=== PATIENT | female | born 1970 | race Caucasian/White ===

== ENCOUNTER 2017-04-16 14:37 | Emergency (ER) | payer OTHER ==
[~2017-04-16 14:37] MED LIST: DEXL60CA2 PO; ESOM20CA PO; LACT1CAP8 PO; MAGN1TAB PO; PROM25TA10 PO; RANI150T2 PO; SUCR1TAB PO
[2017-04-16] MEDS ORDERED: IV NORMAL SALINE 1000ML BAG 1,000 ML IV SCH (14:41)
[2017-04-16] MEDS ORDERED: ONDANSETRON PF 4 MG/2 ML VIAL. IV ONE (14:45)
[2017-04-16 15:41] LABS: BASO % 0 % (0-3); EOS % 0 % (0-3); HEMATOCRIT 37.4 % (36.0-47.0); HEMOGLOBIN 11.8 g/dL (12.0-15.5); LYMPH # 1.2 x10^3/uL (1.0-4.8); LYMPH % 9 % (24-48); MEAN CORPUSCULAR HEMOGLOBIN 24 pg (25-35); MEAN CORPUSCULAR HGB CONC 32 g/dL (31-37); MEAN CORPUSCULAR VOLUME 77 fL (79-100); MONO % 6 % (0-9); NEUT % 84 % (31-73); PLATELET COUNT 381 x10^3/uL (140-400); RED BLOOD COUNT 4.88 x10^6/uL (3.50-5.40); RED CELL DISTRIBUTION WIDTH 15.7 % (11.5-14.5); WHITE BLOOD COUNT 12.9 x10^3/uL (4.0-11.0)
[2017-04-16 15:49] LABS: BILIRUBIN,URINE NEGATIVE (NEG); GLUCOSE,URINE NEGATIVE (NEG); NITRITE,URINE NEGATIVE (NEG); PH,URINE 7.5; PROTEIN,URINE NEGATIVE (NEG-TRACE); UROBILINOGEN,URINE 0.2 mg/dL (0.2 mg/dL)
[2017-04-16 15:54] LABS: CALCIUM 9.5 mg/dL (8.5-10.1); CREATININE 0.8 mg/dL (0.6-1.0); GFR 76.9; POTASSIUM 3.6 mmol/L (3.5-5.1)
[2017-04-16 15:54] LABS: BACTERIA,URINE FEW /HPF (0-FEW); RBC,URINE 0 /HPF (0-2); SQUAMOUS EPITHELIAL CELL,UR FEW /LPF; WBC,URINE OCC /HPF (0-4)
[2017-04-16 15:55] LABS: BARBITURATES NEG (NEG); BENZODIAZEPINES NEG (NEG); CANNABINOIDS NEG (NEG); COCAINE NEG (NEG); METHADONE NEG (NEG); OPIATES NEG (NEG); PHENCYCLIDINE NEG (NEG)
[2017-04-16 16:00] LABS: ALBUMIN 3.7 g/dL (3.4-5.0); ALBUMIN/GLOBULIN RATIO 0.9 (1.0-1.7); TOTAL BILIRUBIN 0.4 mg/dL (0.2-1.0); TOTAL PROTEIN 7.6 g/dL (6.4-8.2)
[2017-04-16] MEDS ORDERED: LIDO:MAALOX:DONNATAL 1:1:1 15 ML SINGLE DOSE SWSW ONE (17:00)
[2017-04-16] MEDS ORDERED: IV NORMAL SALINE 1000ML BAG 1,000 ML IV ONE (17:00)
[2017-04-16 18:05] VITALS: BP 165/73
[2017-04-16] MEDS ORDERED: DICY10CA53 PO (18:14)
[2017-04-16] MEDS ORDERED: ONDA4TAB7 PO (18:14)
--- NOTE | 2017-04-16 21:26 | ED.ADGEN ---
Past Medical History Past Medical History: Anxiety, Hypertension Past Surgical History: Cholecystectomy, Other Additional Past Surgical Histo: adnoids Alcohol Use: None Drug Use: None Adult General Chief Complaint Chief Complaint: NAUSEA/VOMITING/DIARRHA HPI HPI Patient is a 46 year old woman, history of hypertension, anxiety, who presents to the emergency department with a complaint of sudden onset of nausea, vomiting , and diarrhea that began this morning. Patient states she's also experiencing abdominal cramping throughout her entire abdomen. Patient states that she is having "hot flashes" throughout this morning as well, denies any chills or distinct fevers. Denies any similar symptoms previously. No sick contacts or exposures, Patient states she began taking Zoloft 2 days ago, and her blood pressure medication about a week ago. Patient denies any recent travel or surgery, any chest pain or shortness of breath, any urinary complaints. Denies any blood in stool or emesis. Patient states that she is anxious that her medication changes or causing her symptoms. She states she did review the insert for her Zoloft and is concerned that she may be experiencing serotonin syndrome. Patient is tachycardic in the 1 teens, blood pressure is 199/99, oxygen saturation is 98% on room air, respiratory rate is 24 and unlabored. No suicidal or homicidal ideations. She has not taken anything at home for symptoms prior to coming to the ED. Review of Systems Review of Systems Constitutional: Denies fever or chills. [] Eyes: Denies change in visual acuity. [] HENT: Denies nasal congestion or sore throat. [] Respiratory: Denies cough or shortness of breath. [] Cardiovascular: Denies chest pain or edema. [] GI: Denies abdominal pain, nausea, vomiting, bloody stools or diarrhea. [] : Denies dysuria. [] Musculoskeletal: Denies back pain or joint pain. [] Integument: Denies rash. [] Neurologic: Denies headache, focal weakness or sensory changes. [] Endocrine: Denies polyuria or polydipsia. [] Lymphatic: Denies swollen glands. [] Psychiatric: Denies depression or anxiety. [] Current Medications Current Medications Current Medications Medications (Trade) Dose Ordered Sig/Rico Start Time Stop Time Status Last Admin Dose Admin Multi-Ingredient Mouthwash/Gargle (Gi Cocktail Single Dose) 15 ml 1X ONCE 04/16/17 17:00 04/16/17 17:01 DC 04/16/17 16:43 15 ML Ondansetron HCl (Zofran) 4 mg 1X ONCE 04/16/17 14:45 04/16/17 14:46 DC 04/16/17 15:29 4 MG Sodium Chloride 1,000 ml @ 1,000 mls/hr 1X ONCE 04/16/17 17:00 04/16/17 17:59 DC 04/16/17 17:24 1,000 MLS/HR Allergies Allergies Allergies Coded Allergies Type Severity Reaction Last Updated Verified No Known Medication Allergies Allergy Unknown 05/21/16 Yes diclofenac Adverse Reaction Intermediate NAUSEA 05/21/16 Yes Physical Exam Physical Exam Constitutional: Well developed, well nourished, appears anxious, non-toxic appearance. [] HENT: Normocephalic, atraumatic, bilateral external ears normal, oropharynx moist, no oral exudates, nose normal. [] Eyes: PERRLA, EOMI, conjunctiva normal, no discharge. [] Neck: Normal range of motion, no tenderness, supple, no stridor. [] Cardiovascular:Heart rate regular rhythm, no murmur , S1, S2, rubs or gallops. [ ] Lungs & Thorax: Bilateral breath sounds clear to auscultation , no wheezing, rhonchi, rales. No chest or crepitus or tenderness. [] Abdomen: Bowel sounds normal, soft, mild initial patient throughout the epigastric and periumbilical region, no rebound, rigidity, no guarding, no masses, no pulsatile masses. [] Skin: Warm, dry, no erythema, no rash. [] Back: No tenderness, no CVA tenderness. [] Extremities: No tenderness, no cyanosis, no clubbing, ROM intact, no edema. Data Homans sign. [] Neurologic: Alert and oriented X 3, normal motor function, normal sensory function, no focal deficits noted. [] Psychologic: Affect normal, judgement normal, anxious. [] Current Patient Data Vital Signs Vital Signs Date Time Temp Pulse Resp B/P (MAP) Pulse Ox O2 Delivery O2 Flow Rate FiO2 04/16/17 18:05 104 165/73 (103) 100 Room Air 04/16/17 14:39 98.6 18 98.6 Lab Values Laboratory Tests Test 04/16/17 15:35 04/16/17 15:41 White Blood Count 12.9 x10^3/uL (4.0-11.0) H Red Blood Count 4.88 x10^6/uL (3.50-5.40) Hemoglobin 11.8 g/dL (12.0-15.5) L Hematocrit 37.4 % (36.0-47.0) Mean Corpuscular Volume 77 fL (79-100) L Mean Corpuscular Hemoglobin 24 pg (25-35) L Mean Corpuscular Hemoglobin Concent 32 g/dL (31-37) Red Cell Distribution Width 15.7 % (11.5-14.5) H Platelet Count 381 x10^3/uL (140-400) Neutrophils (%) (Auto) 84 % (31-73) H Lymphocytes (%) (Auto) 9 % (24-48) L Monocytes (%) (Auto) 6 % (0-9) Eosinophils (%) (Auto) 0 % (0-3) Basophils (%) (Auto) 0 % (0-3) Neutrophils # (Auto) 10.8 x10^3uL (1.8-7.7) H Lymphocytes # (Auto) 1.2 x10^3/uL (1.0-4.8) Monocytes # (Auto) 0.8 x10^3/uL (0.0-1.1) Eosinophils # (Auto) 0.0 x10^3/uL (0.0-0.7) Basophils # (Auto) 0.0 x10^3/uL (0.0-0.2) Sodium Level 133 mmol/L (136-145) L Potassium Level 3.6 mmol/L (3.5-5.1) Chloride Level 98 mmol/L (98-107) Carbon Dioxide Level 25 mmol/L (21-32) Anion Gap 10 (6-14) Blood Urea Nitrogen 10 mg/dL (7-20) Creatinine 0.8 mg/dL (0.6-1.0) Estimated GFR (Cockcroft-Gault) 76.9 BUN/Creatinine Ratio 13 (6-20) Glucose Level 113 mg/dL (70-99) H Calcium Level 9.5 mg/dL (8.5-10.1) Total Bilirubin 0.4 mg/dL (0.2-1.0) Aspartate Amino Transferase (AST) 15 U/L (15-37) Alanine Aminotransferase (ALT) 22 U/L (14-59) Alkaline Phosphatase 67 U/L (46-116) Total Protein 7.6 g/dL (6.4-8.2) Albumin 3.7 g/dL (3.4-5.0) Albumin/Globulin Ratio 0.9 (1.0-1.7) L Lipase 187 U/L (73-393) Urine Collection Type Void Urine Color Yellow Urine Clarity Clear Urine pH 7.5 Urine Specific [place] <=1.005 Urine Protein Negative mg/dL (NEG-TRACE) Urine Glucose (UA) Negative mg/dL (NEG) Urine Ketones (Stick) Negative mg/dL (NEG) Urine Blood Negative (NEG) Urine Nitrite Negative (NEG) Urine Bilirubin Negative (NEG) Urine Urobilinogen Dipstick 0.2 mg/dL (0.2 mg/dL) Urine Leukocyte Esterase Negative (NEG) Urine RBC 0 /HPF (0-2) Urine WBC Occ /HPF (0-4) Urine Squamous Epithelial Cells Few /LPF Urine Bacteria Few /HPF (0-FEW) Urine Opiates Screen Neg (NEG) Urine Methadone Screen Neg (NEG) Urine Barbiturates Neg (NEG) Urine Phencyclidine Screen Neg (NEG) Urine Amphetamine/Methamphetamine Neg (NEG) Urine Benzodiazepines Screen Neg (NEG) Urine Cocaine Screen Neg (NEG) Urine Cannabinoids Screen Neg (NEG) Urine Ethyl Alcohol Neg (NEG) Laboratory Tests 04/16/17 15:35 Laboratory Tests 04/16/17 15:35 EKG EKG ECG: Sinus tachycardia, heart rate 103 bpm, no ectopy. As interpreted by me. Radiology/Procedures Radiology/Procedures Acute abdominal series: 3 view: Normal cardiopulmonary silhouette, no infiltrates, no effusions, no soft tissue or bony abnormalities identified. No free air. Patient was stool and bowel gas throughout, no evidence of obstruction or other acute abnormalities. As interpreted by me. [] Course & Med Decision Making Course & Med Decision Making Pertinent Labs and Imaging studies reviewed. (See chart for details) Discussed with patient the medications may be causing some of her GI symptoms, patient's tachycardia improved in the ED after IV fluids and our discussion, anxiety does seem to be a largely contributing factor at this time. No acute findings identified on her laboratory studies or imaging, aside from mild leukocytosis of 12.4, LFTs and lipase within normal limits, no further emesis in the ED, patient did have another episode of loose brown stool. Patient resting comfortably, on reevaluation states that she is feeling better, we did discuss the fact that her symptoms are consistent with serotonin syndrome, as she has only taken 2 doses of her Zoloft for the past 2 days. Did discuss with the patient that GI upset and "hot flashes", could potentially be a side effect of the medication, as she only started 2 days ago, advised her to discontinue the medication at this time, to follow recommendations for potential gastroenteritis, and to consider restarting medication with when her symptoms are resolved. Additionally, patient could meet with her primary care provider to discuss whether she wants to restart Zoloft or tendon other medication. Did discuss with the patient that Zoloft is typically pretty well tolerated. Patient states she will continue to take her blood pressure medication other medications as directed, blood pressures immediately improved in the ED, and she is much more comfortable at this time, heart rate has now dropped down into the 80s and 90s. Patient is ambulating without difficulty in the ED, states she feels ready to go home. Was given prescription for Bentyl, Zofran, clear and detailed return instructions and precautions, discharged home with plan and instructions as above. Dragon Disclaimer Dragon Disclaimer This electronic medical record was generated, in whole or in part, using a voice recognition dictation system. Departure Impression: Primary Impression: Nausea and vomiting Additional Impressions: Diarrhea Anxiety Depression Disposition: 01 HOME, SELF-CARE Condition: IMPROVED Scripts Ondansetron Hcl (ZOFRAN) 4 Mg Tablet 1 TAB PO Q8HRS Y for NAUSEA, #12 TAB Prov: ROBINSON FRANKLIN DO 04/16/17 Dicyclomine Hcl (BENTYL) 10 Mg Capsule 1 CAP PO TID Y for PAIN, #12 CAP 1 Refill Prov: ROBINSON FRANKLIN DO 04/16/17 Problem Qualifiers ROBINSON FRANKLIN DO Apr 16, 2017 21:26
--- NOTE | 2017-04-17 08:38 | RAD ---
Two-view abdominal series and portable AP upright chest x-ray Clinical indications: Epigastric pain with nausea and vomiting. Dizziness for 8 hours. Findings: No obstructive bowel pattern is seen. No significant air-fluid levels are seen. No free intraperitoneal air is seen. Cholecystectomy clips are seen within the right upper quadrant. Mild dextroscoliosis of the lumbar spine is seen. Chest x-ray demonstrates no acute lung infiltrate or pleural effusion or pulmonary edema or pneumothorax or lung mass. The heart size and pulmonary vasculature and mediastinum and both sherry are unremarkable. Mild levoscoliosis of the thoracic spine is seen. IMPRESSION: No acute radiographic abnormality.
== END 2017-04-16 18:38 | disposition home or self-care (01) ==
LOC: ER 14:37
DX: R11.2 Nausea with vomiting, unspecified (principal); R19.7 Diarrhea, unspecified; F41.9 Anxiety disorder, unspecified; F32.9 Major depressive disorder, single episode, unspecified; R10.13 Epigastric pain; R10.33 Periumbilical pain; I10 Essential (primary) hypertension; Z90.89 Acquired absence of other organs; Z88.6 Allergy status to analgesic agent
CPT/HCPCS: 36415; 74022; 80053; 80307; 81001; 83690; 85027; 96361; 96374; 99285; J2405; J7030; G0479

== ENCOUNTER → 2019-05-23 | Day surgery (SDC) | payer BC ==
[~2019-05-23] MED LIST changes: +DICY10CA53 PO; +HYDROmorphone 2 MG/ML VIAL IV PRN; +IV RINGERS,LACTATED 1000ML 1,000 ML IV SCH; +LIDOCAINE 1% PF 2 ML VIAL. ID PRN; +LOSA50TA15 PO; +MORPHINE SULFATE 2 MG/ML VIAL. IV PRN; +ONDA4TAB7 PO; +ONDANSETRON PF 4 MG/2 ML VIAL. IV PRN; +PANT20TA2 PO; +PROCHLORPERAZINE 10 MG/2 ML VIAL. IV PRN; +PROPOFOL 20 ML IV ONE; +SUCR1TAB35 PO; +fentaNYL PF VIAL 100 MCG/2 ML VIAL IV PRN
[2019-05-23 08:25] VITALS: BP 121/67
== END ==
LOC: ENDOS 07:05
PROVIDERS: ATTEND Internal Medicine Gastroenterology
DX: K29.50 Unspecified chronic gastritis without bleeding (principal); K21.9 Gastro-esophageal reflux disease without esophagitis; K44.9 Diaphragmatic hernia without obstruction or gangrene; F41.9 Anxiety disorder, unspecified; J45.909 Unspecified asthma, uncomplicated; F15.90 Other stimulant use, unspecified, uncomplicated; Z90.49 Acquired absence of other specified parts of digestive tract; Z88.8 Allergy status to other drugs, medicaments and biological substances; Z72.89 Other problems related to lifestyle
CPT/HCPCS: 43235; 81025; J2704

== ENCOUNTER → 2019-06-04 | Outpatient (CLI) | payer BC ==
[2019-05-23 08:25] VITALS: BP 121/67
[~2019-06-04] MED LIST changes: -HYDROmorphone 2 MG/ML VIAL IV PRN; -IV RINGERS,LACTATED 1000ML 1,000 ML IV SCH; -LIDOCAINE 1% PF 2 ML VIAL. ID PRN; -MORPHINE SULFATE 2 MG/ML VIAL. IV PRN; -ONDANSETRON PF 4 MG/2 ML VIAL. IV PRN; -PROCHLORPERAZINE 10 MG/2 ML VIAL. IV PRN; -PROPOFOL 20 ML IV ONE; -fentaNYL PF VIAL 100 MCG/2 ML VIAL IV PRN
--- NOTE | 2019-06-04 15:48 | RAD ---
Gastric Emptying Study 06/04/2019 Indication: Severe acid reflux, nausea, vomiting Procedure: Anterior and posterior projection static images are obtained over the stomach following oral administration of 2 mCi of 99 M technetium sulfur colloid in a solid meal (egg and toast). Time points include an immediate baseline, and 1, 2, 3, and 4 hours post ingestion. Findings: There is progressive emptying of the stomach on sequential images. Percentage retention at... One hour is 60% (normal 34.8-91%). Two hours 53% (normal 2.7-60%). Three hours 32% (normal 0.5-28%). Four hours 11% (normal 0-10%). Impression: Delayed gastric emptying at the 3 and 4 hour time points consistent with mildly delayed gastric emptying. Consensus Recommendations for Gastric Emptying Scintigraphy: A Joint Report of the [place] [employer] Society and the Society of Nuclear Medicine: J. Nucl. Med. Technol. November 2007 vol. 36 no. 1 44-54 Grading for severity of delayed GE based on the 4-h value: grade 1 (mild): 11?20% retention at 4 h grade 2 (moderate): 21?35% retention at 4 h grade 3 (severe): 36?50% retention at 4 h grade 4 (very severe): >50% retention at 4 h. Electronically signed by: Reid Alvarenga MD (06/04/2019 3:45 PM) [id number]
== END | disposition home or self-care (01) ==
LOC: NM 09:21
PROVIDERS: ATTEND Internal Medicine Gastroenterology
DX: K30 Functional dyspepsia (principal); K21.9 Gastro-esophageal reflux disease without esophagitis
CPT/HCPCS: 78264; A9541

== ENCOUNTER → 2019-06-28 | Outpatient (CLI) | payer BC ==
[2019-05-23 08:25] VITALS: BP 121/67
[~2019-06-28] MED LIST changes: +REGADENOSON 0.4 MG/5 ML DISP.SYRIN. IV ONE
--- NOTE | 2019-07-02 11:24 | RAD ---
MR#: [id number] Date of Study: 06/28/2019 Ordering Physician: JESSICA CARABALLO Referring Physician: JEFFREY ANTONIO Tech: RT Jarrett DumontR) (N) APPROVED REPORT Test Type: Pharmacological Stress Nurse/Tech: Yoan COULTER Test Indications: HTN, Acid Reflux Cardiac History: HTN, Family Hx, See EMR Medications: See EMR Medical History: See EMR Resting ECG: SR Resting Heart Rate: 93 bpm Resting Blood Pressure: 144/81mmHg Pretest Chest Pain: No chest pain Nurse/Tech Notes Lungs CTA, Heart tones regular. Consent: The procedure was explained to the patient in lay terms. Informed consent was witnessed. Hugh eout was entered into [email or web address]. History and Stress Test performed by RT Rafa (R) (N) Pharm. Details Pharmacologic stress testing was performed using 0.4mg per 5ml of regadenoson given intravenously ove r 7-10 seconds. Stress Symptoms No chest pain or symptoms. POST EXERCISE Reason for Termination: Infusion complete Max HR: 144 bpm Max Blood Pressure: 153/73mmHg Blood Pressure response to exercise: Normal blood pressure response during stress. Heart Rate response to exercise: WNL Chest Pain: No. Arrhythmia: No. ST Change: No. INTERPRETATION Stress EKG Conclusion: No evidence of stress induced EKG changes. Imaging Protocol IMAGE PROTOCOL: Rest Tc-99m/stress Tc-99m 1 day Rest: Stress: Viability: Radiopharm.Tc99m [id number] Sestamibi [id number] 35mCi Duration 13min. 13min. Img Date 06/28/2019 06/28/2019 Inj-Img [id number]. 60min. Rest Admin Site:IV - Right AntecubitalAdministrator:MAITE Case, ARRPradeep (R)(N) Stress Admin Site: IV - Right AntecubitalAdministrator: RT Jarrett CraigR)(N) STRESS DATA End Diast. Vol.59.0mlLVEDV index BSA31.0ml End Syst. Vol.9.0mlLVESV index BSA5.0ml Myocardial Dfct846.0gEject. Valhrjcw66.0% Stress Scores Regional WT1.00Summed WT9.00 Regional WM0.00Summed WM0.00 The rest and stress images show normal perfusion, normal contraction and thickening. LV Perf. Quant 17 Seg. SSS0.00 17 Seg. SRS0.00 17 Seg. SDS0.00 Stress Defect Extent (% LAD)0.00Rest Defect Extent (% LAD)0.00Rev. Defect Extent (% LAD)0.00 Stress Defect Extent (% LCX) 0.00Rest Defect Extent (% LCX)0.00Rev. Defect Extent (% LCX)0.00 Stress Defect Extent (% RCA)0.00Rest Defect Extent (% RCA)0.00Rev. Defect Extent (% RCA)0.00 Stress Defect Extent (% JIMI)0.00Rest Defect Extent (% JIMI)0.00Rev. Defect Extent (% JIMI)0.00 Other Information Quality:Good Risk Assessment: Low Risk Conclusion 1. No evidence of EKG changes with stress testing. 2. Normal perfusion at stress/rest. 3. Low risk study. 4. EF > 60%. Signed by : [place], Electronically Approved : 06/28/2019 11:55:11
== END | disposition home or self-care (01) ==
LOC: NM 07:29
PROVIDERS: ATTEND Internal Medicine Cardiovascular Disease
DX: I10 Essential (primary) hypertension (principal); R07.9 Chest pain, unspecified; K21.9 Gastro-esophageal reflux disease without esophagitis
CPT/HCPCS: 78452; 93017; A9500; J2785

== ENCOUNTER → 2019-07-13 | Outpatient (CLI) | payer BC ==
[2019-05-23 08:25] VITALS: BP 121/67
[~2019-07-13] MED LIST changes: -REGADENOSON 0.4 MG/5 ML DISP.SYRIN. IV ONE
--- NOTE | 2019-07-13 09:06 | CARD ---
MR#: [id number] Date of Study: 07/13/2019 Ordering Physician: JESSICA MULLER, Referring Physician: Micky ANTONIO: Rowan Downing APPROVED REPORT EXAM: Two-dimensional and M-mode echocardiogram with Doppler and color Doppler. Other Information Quality : AverageHR: 90bpm INDICATION Chest Pain 2D DIMENSIONS RVDd2.3 (2.9-3.5cm)Left Atrium(2D)3.2 (1.6-4.0cm) IVSd0.8 (0.7-1.1cm)Aortic Root(2D)2.1 (2.0-3.7cm) LVDd4.6 (3.9-5.9cm)LVOT Diameter1.6 (1.8-2.4cm) PWd0.7 (0.7-1.1cm)LVDs2.2 (2.5-4.0cm) FS (%) 53.1 %SV82.8 ml LVEF(%)84.1 (>50%) Aortic Valve AoV Peak Mike.138.5cm/sAoV VTI25.6cm AO Peak GR.7.7mmHgLVOT Peak Mike.125.0cm/s AO Mean GR.4mmHgAVA (VMAX)1.82cm2 Mitral Valve MV E Fclckibt701.8cm/sMV E Peak Gr.5mmHg MV DECEL [id number] A Cqubdnbh89.7cm/s MV E Mean Gr.2mmHgE/A Ratio1.5 Pulmonary Valve PV Peak Wqohukbc01.4cm/s Tricuspid Valve RAP [id number] Pulmonary Vein S1 Whzonwyj84.1cm/sD2 Qhzmjuzm93.5cm/s LEFT VENTRICLE The left ventricle is normal size. There is normal left ventricular wall thickness. The left ventricu lar systolic function is normal. The Ejection Fraction is 60-65%. There is normal LV segmental wall m otion. Transmitral Doppler flow pattern is Grade II-pseudonormal filling dynamics. RIGHT VENTRICLE The right ventricle is normal size. There is normal right ventricular wall thickness. The right ventr icular systolic function is normal. ATRIA The left atrium size is normal. The right atrium size is normal. The interatrial septum is intact wit h no evidence for an atrial septal defect or patent foramen ovale as noted on 2-D or Doppler imaging. AORTIC VALVE The aortic valve is normal in structure and function. Doppler and Color Flow revealed no significant aortic regurgitation. There is no significant aortic valvular stenosis. MITRAL VALVE The mitral valve is thickened but opens well. There is no evidence of mitral valve prolapse. There is no mitral valve stenosis. Doppler and Color-flow revealed trace mitral regurgitation. TRICUSPID VALVE The tricuspid valve is normal in structure and function. Doppler and Color Flow revealed trace tricus pid regurgitation. There is no tricuspid valve stenosis. PULMONIC VALVE The pulmonary valve is normal in structure and function. Doppler and Color Flow revealed no pulmonic valvular regurgitation. GREAT VESSELS The aortic root is normal in size. The ascending aorta is normal in size. The IVC is normal in size a nd collapses >50% with inspiration. PERICARDIAL EFFUSION There is no pleural effusion. There is no evidence of significant pericardial effusion. Critical Notification Critical Value: No <Conclusion> The left ventricular systolic function is normal. The Ejection Fraction is 60-65%. There is normal LV segmental wall motion. Trace mitral regurgitation. Trace tricuspid regurgitation. There is no evidence of significant pericardial effusion. Signed by : Jessica Muller, Electronically Approved : 07/13/2019 09:06:06
== END | disposition home or self-care (01) ==
LOC: ECHO 07:41
PROVIDERS: ATTEND Internal Medicine Cardiovascular Disease
DX: R07.89 Other chest pain (principal)
CPT/HCPCS: 93306